=== PATIENT | female | born 1980 | race Caucasian/White ===

== ENCOUNTER 2017-04-11 09:17 | Inpatient (IN) | payer OTHER ==
[~2017-04-11] VITALS: Ht 157.5 cm; Wt 45.4 kg
[2017-04-11] MEDS ORDERED: CLONIDINE HCL 0.1 MG TABLET PO PRN (14:15)
[2017-04-11] MEDS ORDERED: IBUPROFEN 600 MG TABLET PO PRN (14:15)
[2017-04-11] MEDS ORDERED: diphenhydrAMINE 50 MG CAPSULE PO PRN (14:15)
[2017-04-11] MEDS ORDERED: ACETAMINOPHEN 325 MG TABLET PO PRN (14:15)
[2017-04-11] MEDS ORDERED: MAG HYDROX/AL HYDROX/SIMETH 30 ML LIQUID UDC PO PRN (14:15)
[2017-04-11] MEDS ORDERED: DICYCLOMINE HCL 20 MG TABLET PO PRN (14:15)
[2017-04-11] MEDS ORDERED: HYDROXYZINE PAMOATE 25 MG CAPSULE PO PRN (14:15)
[2017-04-11] MEDS ORDERED: NICOTINE POLACRILEX 4 MG GUM-PK OF TEN BC PRN (14:15)
[2017-04-11] MEDS ORDERED: MIRALAX 17 GM POWD.PACK PO PRN (14:15)
[2017-04-11] MEDS ORDERED: LORAZEPAM 1 MG TABLET PO PRN (14:15)
[2017-04-11] MEDS ORDERED: ONDANSETRON 4 MG/2 ML VIAL IM PRN (14:15)
[2017-04-11] MEDS ORDERED: ONDANSETRON ODT 4 MG TAB.RAPDIS SL PRN (14:15)
[2017-04-11] MEDS ORDERED: ALBUTEROL INH PRN (14:15)
[2017-04-11] MEDS ORDERED: LOPERAMIDE HCL 2 MG CAPSULE PO PRN ×2 (14:15)
--- NOTE | 2017-04-11 14:50 | NUR ---
Pre-Admit Assessment Skating Carhop encounters pt in intake room. Pt has an anxious affect with congruent mood. Pt is hyper-active, unable to keep arms or legs still. Pt is hyper-vigilant and labile. VS are stable. Pt is A/O x4 and able to make needs known.
--- NOTE | 2017-04-11 15:25 | NUR ---
Admission Note Pt arrives per ambulation and skin check is performed by GUERA Padilla, with reports of skin intact. Pt is a 36 year old female admitted for methamphetamine and heroin detoxification. Pt reports NKA, wishes to be a full code and has a regular diet. Pt reports a medically history of Asthma. Pt brought own medication, to include, Proventil inhaler, acyclovir, Advair, and also presented with 14mg Nicotine patches. Pt is under the influence of methamphetamines, having last smoked 0.1g at 1200, per report of pt. Pt is hyperactive, hyper-vigilant and is easily distracted, unable to sit still without making jerky movements with limbs. Pt is calm and cooperative, A/O x4 and able to make her needs known. Pt denies HI/SI or A/VH. Clear in thought and speech. Pt presents with a COWS of 7, but admits, still having it in the system, not feeling bad. Pt reports last having used at 1200 when she smoked 0.1g of meth. Last used Heroin at 0800, I shot a .4g, Pt states she has been sober for 8 months in 2003. Pt endorses having been in [facility] from 12/15 to 02/14. Pt also states she has been in at least 9 or 10 other treatment centers. Pt endorses having started using 22 years ago and has been using at current rate for last two years, minus time in treatment. Pt endorses IV use of Heroin, .25-1.5g/daily and smoking, .1g-.25g of methamphetamine/daily. Pt presents with VS WNL, pt with no s/s of distress and no complaints voiced by pt. Pt provided with admission educational material and introduced to the unit rules, activities and guidelines. Pt oriented to unit and room. All admission paperwork signed. Bed in low position, wheels locked, side rails up x2 with call light within reach. Will continue to monitor, support and encourage according to plan of care
[2017-04-11 15:44] LABS: *URINE HCG, QUAL NEGATIVE (NEGATIVE)
[2017-04-11 15:48] LABS: *AMPHETAMINE, URINE POSITIVE (NEGATIVE); *BARBITURATE, URINE NEGATIVE (NEGATIVE); *CANNABINOID, URINE NEGATIVE (NEGATIVE); *COCCAINE, URINE NEGATIVE (NEGATIVE); *OPIATE, URINE POSITIVE (NEGATIVE); *PHENCYCLIDINE SCREEN,URINE NEGATIVE (NEGATIVE)
[2017-04-11] MEDS ORDERED: FLUT1DIS28 INH (16:12)
[2017-04-11] MEDS ORDERED: ACYC400T PO (16:12)
[2017-04-11] MEDS ORDERED: NICO1PAT25 TP (16:12)
[2017-04-11] MEDS ORDERED: ALBU18HF2 INH (16:12)
[2017-04-11] MEDS: NICOTINE 21 MG/24HR PATCH TD SCH (17:00)
[2017-04-11 17:12] VITALS: BP 108/81
--- NOTE | 2017-04-11 19:00 | NUR ---
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 Pt was admitted for Meth and Heroin detoxification. Pt is a full code, with NKA, and eats a regular diet. PMH of Asthma and no history of seizures. Pts initial COWS of 7 mostly related to intoxication rather than withdrawal. Pt is hyperactive, hyper-vigilant and is easily distracted, unable to sit still without making jerky movements with limbs. Pt is calm and cooperative, A/O x4 and able to make her needs known. Pt makes no complaints and has no s/s of distress noted. Bed in low position, wheels locked, with side rails up x2. Call light within in reach. All safety measures in place according to hospital policy. No further comments, questions or concerns voiced by oncoming staff.
[2017-04-11 20:36] VITALS: BP 112/62
[2017-04-11] MEDS ORDERED: BUPRENORPHINE HCL 2 MG TAB.SUBL SL PRN (21:00)
--- NOTE | 2017-04-11 21:52 | NUR ---
Start of shift : Rec'd patient resting in room. Afebrile and vital signs are stable. Pt was admitted for Meth and Heroin detoxification. Patient's COWS score is 7 and mostly related to intoxication rather than withdrawal. Pt is hyperactive, hyper-vigilant and is easily distracted, unable to sit still. Patient moves from bed tyo chair and back. Pt is calm and cooperative. Patient denies having pain or discomfort. No signs of distress. Encouraged to increase fluid intake to facilitate detox. Subutrex taper will start in am. No other concerns at this time. Safety precaution initiated. Bed in the lowest position,wheels locked, side rails up x2 and call light within reach. Will continue to monitor closely.
--- NOTE | 2017-04-11 22:36 | NUR ---
PRN: Ativan. Noted patient is constantly squirming all over the room. Patient is moving from chair, to bed to floor and back. Patient is high risk for fall. Will increase frequency of rounding. Medicated with Ativan as ordered. Patient tolerated well. Will continue to monitor closely.
--- NOTE | 2017-04-11 23:19 | NUR ---
Ativan reassessment: Sleeping soundly in bed. No signs of distress. Safety precaution in progress. Bed is in the lowest position, side rails are up and call light within reach. Will continue to monitor closely.
[2017-04-12 00:36] VITALS: BP 111/76
[2017-04-12 04:31] VITALS: BP 107/50
--- NOTE | 2017-04-12 06:40 | NUR ---
EOS report: No interval changes during the night. No signs of pain or discomfort. No signs of distress. Afebrile and vital signs are stable. Patient rec'd Ativan for agitation with good effect. Patient slept a total of 8 hrs. Patient 's COWS score is 7. Patient will start Subutrex in am. No other concerns at this time. All needs were met. Safety and fall precaution maintained. Bed is in the lowest position, side rails are up and call light within reach. Will endorse to oncoming shift to follow up care.
[2017-04-12 07:27] LABS: ALANINE AMINOTRANSFERASE 20 U/L (14-59); ALKALINE PHOSPHATASE 100 U/L (50-136); ASPARTATE AMINOTRANSFERASE 16 U/L (15-37); BILIRUBIN,TOTAL 0.4 mg/dL (0.2-1.0); CARBON DIOXIDE 30 mmol/L (21-32); CHLORIDE 105 mmol/L (98-107); CREATININE 0.6 mg/dL (0.6-1.3); GLUCOSE 87 mg/dL (74-106); MAGNESIUM 1.9 mg/dL (1.8-2.4); POTASSIUM 3.8 mmol/L (3.5-5.1); TOTAL PROTEIN, SERUM 6.4 g/dL (6.4-8.2); UREA NITROGEN, BLOOD 13 mg/dL (7-18)
--- NOTE | 2017-04-12 07:30 | NUR ---
START OF SHIFT NOTE Pt is a 36 yr old female, A&Ox3. Pt was admitted on 04/11/17 for Opiate Dependence and is on 5 day Subutex taper as ordered. Pt received Ativan PRN for anxiety during the night. Medication was effective. Pt slept for 7 hrs during the night. Last COWS score was 7. Pt is currently in bed resting with respirations even and unlabored. No acute distress noted. Skin is intact, warm and dry to touch. Pt denies any n/v at this time. Pt is on fall precautions. Call light is within reach. Will continue to monitor.
[2017-04-12 07:32] LABS: BASOPHILS % (AUTO) 0.1 % (0.0-2.0); HEMATOCRIT 43.8 % (37-47); HEMOGLOBIN 14.5 G/DL (12.0-16.0); LYMPHOCYTES # (AUTO) 1.7 K/UL (0.8-4.8); LYMPHOCYTES % (AUTO) 29.7 % (20.5-51.5); MEAN CORPUSCULAR HEMOGLOBIN 27.9 UUG (27.0-31.0); MEAN CORPUSCULAR HGB CONC 33 g/dL (32.0-37.0); MEAN CORPUSCULAR VOLUME 84.3 FL (81.0-99.0); MONOCYTES # (AUTO) 0.4 K/UL (0.1-1.30); MONOCYTES % (AUTO) 6.9 % (0.0-11.0); NEUTROPHILS # (AUTO) 2.7 K/UL (1.8-8.9); NEUTROPHILS % (AUTO) 46.3 % (38.5-71.5); PLATELET COUNT (AUTO) 214 K/UL (150-450); RED BLOOD CELL COUNT(AUTO) 5.19 MIL/UL (4.2-5.4); WHITE BLOOD COUNT (AUTO) 5.8 K/UL (4.0-11.2)
[2017-04-12 07:33] LABS: ETHANOL < 3 MG/DL (0-0)
[2017-04-12 08:00] VITALS: BP 109/74
[2017-04-12] MEDS ORDERED: TUBERCULIN,PURIF.PROT.DERIV. 5 TU/0.1 ML TEST ID ONE (09:00)
[2017-04-12] MEDS: BUPRENORPHINE HCL 2 MG TAB.SUBL SL SCH ×4 (09:00→21:00)
[2017-04-12] MEDS: NICOTINE 21 MG/24HR PATCH TD SCH (09:42)
[2017-04-12] MEDS: METHOCARBAMOL 750 MG TABLET PO PRN (09:49)
--- NOTE | 2017-04-12 09:50 | NUR ---
SUBUTEX HELD/PRN GIVEN Subutex 4mg was held due to COWS score <8. Pt is in bed resting with respirations even and unlabored. Pt is c/o back pain 04/09. Motrin 600mg PRN and Robaxin 750mg PO PRN was given. Medication shae well. Encouraged increase fluid intake. Will continue to monitor.
[2017-04-12] MEDS: ADVAIR 250/50 INHALER INH SCH ×2 (10:37→21:05)
--- NOTE | 2017-04-12 11:19 | NUR ---
PRN RE-ASSESSMENT Motrin PRN and Robaxin PRN was effective. Pt pain level subsided to 5/10. Pt is resting in bed with respirations even and unlabored. Safety precaution observed. Will continue to monitor.
[2017-04-12 12:00] VITALS: BP 123/80
[2017-04-12 16:00] VITALS: BP 112/76
--- NOTE | 2017-04-12 17:25 | NUR ---
PRNS GIVEN Pt c/o anxiety, cold chills, and muscle aching. Pt's Hr was noted at 123bpm. Dr. Allen was made aware. Clonidine 0.1mg PO PRN and Vistaril 25mg PO PRN was given with Subutex 4mg as scheduled at 1700. Medication shae well. Will continue to monitor.
--- NOTE | 2017-04-12 18:56 | NUR ---
END OF SHIFT Pt is a 36 yr old female, A&Ox3. Pt was admitted on 04/11/17 for Opiate Dependence and is on 5 day Subutex taper as ordered. Pt has been observed with increase fatigued and has been in bed throughout the day. Pt refused to attend group sessions. Pt c/o anxiety and muscle pain. Motrin PRN and Robaxin was given at 0945. Medication was effective. Subutex 4mg was held at 0900 due to COWS score <8. Clonidine 0.1 PRN and Vistaril 25mg PRN was given at 1725 for increase anxiety and tachy. Medication was effective. Pt is currently in bed resting. Skin is intact, warm and dry to touch. No tremors seen or felt. Pt denies any n/v. Encouraged increase fluid intake. Last COWS score was 14 at 1600. Pt is on fall precautions. Call light is within reach.
--- NOTE | 2017-04-12 19:55 | NUR ---
Start of shift : Rec'd patient resting in room. Afebrile and vital signs are stable. Pt was admitted for Meth and Heroin detoxification. Patient's COWS score is 14. Patient does not want to participates in activities. Pt is anxious at times. Patient c/o generalized discomfort and chills. No signs of distress. Encouraged to increase fluid intake to facilitate detox. Subutrex taper protocol in progress. No other concerns at this time. Safety precaution initiated. Bed in the lowest position,wheels locked, side rails up x2 and call light within reach. Will continue to monitor closely.
[2017-04-12 20:15] VITALS: BP 109/74
[2017-04-13 00:05] VITALS: BP 119/79
[2017-04-13 04:28] VITALS: BP 110/69
--- NOTE | 2017-04-13 06:18 | NUR ---
EOS report: No interval changes during the night. No signs of pain or discomfort. No signs of distress. Afebrile and vital signs are stable. Patient slept a total of 9 hrs. Patient 's COWS score is 7. Patient started on Subutrex and tolerating well. Patient rec'd no prn medication during the shift. No other concerns at this time. All needs were met. Safety and fall precaution maintained. Bed is in the lowest position, side rails are up and call light within reach. Will endorse to oncoming shift to follow up care.
--- NOTE | 2017-04-13 07:30 | NUR ---
START OF SHIFT Pt is a 36 yr old female, A&Ox2. Pt was admitted on 04/11/17 for Opiate Dependence and is on 5 day Subutex taper as ordered. Pt slept for 9hrs during the night. No PRN's were given during the night. Last COWS score was 7. Pt is currently in bed resting with respirations even and unlabored. No acute distress noted. Skin is intact, warm and dry to touch. Pt denies any pain or discomfort at this time. Pt denies any n/v. Pt is on fall precautions. Call light is within reach. Will continue to monitor.
[2017-04-13 08:00] VITALS: BP 107/75
[2017-04-13] MEDS ORDERED: BUPRENORPHINE HCL 2 MG TAB.SUBL SL SCH (09:00)
[2017-04-13] MEDS: NICOTINE 21 MG/24HR PATCH TD SCH (09:00)
[2017-04-13] MEDS: ADVAIR 250/50 INHALER INH SCH ×2 (09:18→21:14)
--- NOTE | 2017-04-13 09:18 | NUR ---
NSG NOTES Pt was complaining of "not feeling good", stating she was having cold chills, abdominal cramping, and lower back pain. Subutex 4mg as scheduled was offered but pt refused. Pt states, "it does not work" and stating she continues to have withdrawal symptoms after taking Subutex. 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 Pt was encouraged and was explained of risks and benefits of medication. Further education is needed. COWS score was 9. VS are in stable condition. Dr. Allen was made aware. In addition, NicoDerm patch 21mg was not applied due to pt stated of wanting to smoke today. Pt was educated on smoking cessation. Will continue to monitor.
[2017-04-13] MEDS ORDERED: BACLOFEN 10 MG TABLET PO ONE (11:30)
[2017-04-13] MEDS ORDERED: KETOROLAC TROMETHAMINE 30 MG INJ IM PRN (11:30)
[2017-04-13] MEDS: BUPRENORPHINE HCL 2 MG TAB.SUBL SL SCH ×3 (11:58→21:14)
[2017-04-13 12:00] VITALS: BP 106/67
[2017-04-13] MEDS: BACLOFEN 20 MG TABLET PO SCH ×2 (14:32→21:14)
[2017-04-13 16:00] VITALS: BP 122/76
[2017-04-13] MEDS: ESCITALOPRAM OXALATE 10 MG TABLET PO SCH (16:42)
--- NOTE | 2017-04-13 18:55 | NUR ---
END OF SHIFT Pt is a 36 yr old female, A&Ox3. Pt was admitted on 04/11/17 for Opiate Dependence and is on 5 day Subutex taper as ordered. Pt has been observed with increase fatigued and has been in bed throughout the day. Pt refused to attend group sessions. Pt c/o anxiety and body aching but refused to take Subutex as scheduled at 0900. Dr. Allen was made aware and discussed with pt in regards to plan of care. Pt agreed to be cooperative with medication regimen and accept to take Subutex as ordered. Medication shae well. Pt is currently in bed resting. Skin is intact, warm and dry to touch. No tremors seen or felt. Encouraged increase fluid intake. Last COWS score was 8 at 1600. Pt is on fall precautions. Call light is within reach.
[2017-04-13 20:00] VITALS: BP 119/81
--- NOTE | 2017-04-13 20:00 | NUR ---
START OF SHIFT Received report from day shift nurse. Pt attended a group meeting and returned to her room after. She is a 36 yo female admitted to [facility] on 04/11 for opiate dependence with a h/o methamphetamine use. She is A&O x4 and ambulatory. NKA, full code status, and on a regular diet. She has a PMH of asthma and herpes. Pt denies SOB. On admission she admitted to using heroin 0.25-1.5 grams per day and methamphetamine 0.1gram-0.25 grams per day. 5 day Subutex taper started 04/13. Pt reports low back pain, hot and cold flashes, axiety. Taper due tonight.
[2017-04-13] MEDS: TRAZODONE 50 MG TABLET PO SCH (21:13)
[2017-04-13] MEDS: METHOCARBAMOL 750 MG TABLET PO PRN (21:14)
--- NOTE | 2017-04-13 21:15 | NUR ---
PRN Robaxin Pt c/o back pain 03/09. PRN Robaxin administered.
--- NOTE | 2017-04-13 22:15 | NUR ---
PRN Robaxin reassessment PRN Robaxin effective. Pt reports that back pain is relieved.
[2017-04-14] VITALS: BP 91/49
--- NOTE | 2017-04-14 | NUR ---
0000 COWS deferred COWS ordered Q4HWA. Pt is lying in bed resting with eyes closed. Vital signs obtained. Safety measures in place.
--- NOTE | 2017-04-14 04:00 | NUR ---
0400 Vitals refused/COWS deferred Pt refused to be woken for 0400 vitals. She is lying in bed resting with eyes closed. Respirations even and unlabored. COWS ordered Q4HWA. Safety measures in place.
--- NOTE | 2017-04-14 07:24 | NUR ---
END OF SHIFT Report provided to day shift nurse. Pt is lying in bed resting. She is a 36 yo female admitted to [facility] on 04/11 for opiate dependence with a h/o methamphetamine use. She is A&O x4 and ambulatory. NKA, full code status, and on a regular diet. She has a PMH of asthma and herpes. On admission she admitted to using heroin 0.25-1.5 grams per day and methamphetamine 0.1gram-0.25 grams per day. 5 day Subutex taper started 04/13. Pt was cooperative with treatment. PRN Robaxin administered. Last COWS was 5 before night meds. She drank 740mL and slept for 8 hours. Taper due tonight.
[2017-04-14 08:06] LABS: HEPATITIS B SURFACE AG Negative (Negative)
[2017-04-14 08:46] VITALS: BP 111/76
[2017-04-14] MEDS: NICOTINE 21 MG/24HR PATCH TD SCH (09:00)
[2017-04-14] MEDS ORDERED: BUPRENORPHINE HCL 2 MG TAB.SUBL SL SCH (09:00)
[2017-04-14] MEDS: BACLOFEN 20 MG TABLET PO SCH ×3 (09:12→21:06)
[2017-04-14] MEDS: ESCITALOPRAM OXALATE 10 MG TABLET PO SCH (09:12)
[2017-04-14] MEDS: ADVAIR 250/50 INHALER INH SCH ×2 (10:38→21:07)
[2017-04-14] MEDS ORDERED: KETOROLAC TROMETHAMINE 30 MG INJ IM PRN (12:00)
[2017-04-14] MEDS ORDERED: HYDROXYZINE PAMOATE 25 MG CAPSULE PO PRN (12:00)
[2017-04-14 12:49] VITALS: BP 110/70
--- NOTE | 2017-04-14 14:11 | NUR ---
Therapist prompted client to attend daily group sessions, and client stated that she would not be attending at this time.
[2017-04-14] MEDS: GABAPENTIN 300 MG CAPSULE PO SCH ×2 (15:09→21:06)
[2017-04-14] MEDS: BUPRENORPHINE HCL 2 MG TAB.SUBL SL SCH ×2 (15:10→21:06)
[2017-04-14 16:50] VITALS: BP 108/66
--- NOTE | 2017-04-14 18:58 | NUR ---
End of Shift Laboratory Sample Carrier provided report on 36 year old female admitted on 04/11/17 for Methamphetamine and heroin detoxification. Pt has NKA, is a full code and eats a regular diet. Pt reports PMH of asthma, with no seizure history noted. Pt currently on a 5 day Subutex taper, tolerating well. Pt has been calm and cooperative, pleasant and social. Makes needs known and is A/O x4. Pt complains of back pain 02/07, but shows no s/s of pain, remains bright, energetic and with a full range of emotions. Bed in low position, with wheels locked, side rails up x2 and call light within reach.
[2017-04-14 20:00] VITALS: BP 102/70
--- NOTE | 2017-04-14 20:05 | NUR ---
START OF SHIFT Received report from day shift nurse. Pt attended a group meeting and returned to her room after. She is a 36 yo female admitted to [facility] on 04/11 for opiate dependence with a h/o methamphetamine use. She is A&O x4 and ambulatory. NKA, full code status, and on a regular diet. She has a PMH of asthma and herpes. Upon admission she reported using heroin 0.25-1.5 grams per day and methamphetamine 0.1gram-0.25 grams per day. Pt reports feeling anxious and generalized body aches. Subutex taper is working well to manage withdrawal symptoms. Fall precautions ordered. Bed is down with call light in reach.
[2017-04-14] MEDS: TRAZODONE 50 MG TABLET PO SCH (21:06)
[2017-04-15] VITALS: BP 104/67
--- NOTE | 2017-04-15 | NUR ---
0000 COWS deferred COWS ordered Q4HWA. Pt is lying in bed resting with eyes closed. Vital signs obtained. Safety measures in place.
--- NOTE | 2017-04-15 07:19 | NUR ---
END OF SHIFT Report provided to day shift nurse. Pt is lying in bed resting. She is a 36 yo female admitted to [facility] on 04/11 for opiate dependence with a h/o methamphetamine use. She is A&O x4 and ambulatory. NKA, full code status, and on a regular diet. She has a PMH of asthma and herpes. Upon admission she reported using heroin 0.25-1.5 grams per day and methamphetamine 0.1gram-0.25 grams per day. Pt slept throughout the shift. No PRN medications administered. Last COWS 3. She drank 396mL and slept for 11 hours. Fall precautions ordered. Bed is down with call light in reach.
--- NOTE | 2017-04-15 07:23 | NUR ---
Start of Shift Sandwich Counter Attendant received report on 36 year old female admitted on 04/11/17 for Methamphetamine and heroin detoxification. Pt has NKA, is a full code and eats a regular diet. Pt reports PMH of asthma, with no seizure history noted. Pt currently on a 5 day Subutex taper, tolerating well. Pt encountered in pt room, resting with eyes closed. Respirations even and unlabored. Rise and fall of chest noted. Bed in low position, with wheels locked, side rails up x2 and call light within reach. Will continue to monitor, support and encourage according to plan of care.
[2017-04-15 08:36] VITALS: BP 116/76
[2017-04-15] MEDS: NICOTINE 21 MG/24HR PATCH TD SCH (09:00)
[2017-04-15] MEDS: ESCITALOPRAM OXALATE 10 MG TABLET PO SCH (09:09)
[2017-04-15] MEDS: GABAPENTIN 300 MG CAPSULE PO SCH ×3 (09:09→21:42)
[2017-04-15] MEDS: BUPRENORPHINE HCL 2 MG TAB.SUBL SL SCH ×3 (09:09→21:42)
[2017-04-15] MEDS: BACLOFEN 20 MG TABLET PO SCH ×3 (09:09→21:42)
[2017-04-15] MEDS: ADVAIR 250/50 INHALER INH SCH ×2 (11:53→21:52)
[2017-04-15] MEDS: LIDOCAINE 5% PATCH TD SCH (12:18)
[2017-04-15 12:42] VITALS: BP 97/66
[2017-04-15 17:14] VITALS: BP 100/67
--- NOTE | 2017-04-15 18:53 | NUR ---
End of Shift President And Chief Commercial Officer provided report on 36 year old female admitted on 04/11/17 for Methamphetamine and heroin detoxification, with no further comments, questions or concerns voiced. Pt has NKA, is a full code and eats a regular diet. Pt reports PMH of asthma, with no seizure history noted. Pt currently on a 5 day Subutex taper, tolerating well. Pt has been calm, cooperative with a bright affect and congruent mood. Makes her needs known and is pleasant. No PRN administered today. Pt did make complaints of pain, but this was alleviated by the administration of Lidocaine. Pt is tolerating detoxification well with minor withdrawal symptoms noted. Last COWS of 4 at 1715. Bed in low position, with wheels locked, side rails up x2 and call light within reach.
[2017-04-15 20:00] VITALS: BP 101/69
--- NOTE | 2017-04-15 20:00 | NUR ---
Start of Shift Note: Report received from day shift nurse. Pt is a 36 y/o female admitted on 04/11/17 for medically-supervised withdrawal from opiates and methamphetamine. Pt reports using 0.25-1.5gm IV heroin and 0.1-0.25gm methamphetamine salts daily for 2 years. Pt is on a 5-day Subutex taper. Pt received with last COWS=4, and no PRN's were given during day shift. Pt is a full code, reports NKDA/NKFA, and is on a regular diet. PMHx: asthma, HSV. Pt received in room and reports anxiety, chills, fatigue and diaphoresis. Bed is in low position and locked, side rails up x2, call light is within reach. Will continue to monitor.
[2017-04-15] MEDS: TRAZODONE 50 MG TABLET PO SCH (21:42)
[2017-04-16] VITALS: BP 94/65
--- NOTE | 2017-04-16 | NUR ---
COWS Deferred: 00:00 COWS is deferred for sleep. V/S stable. All safety precautions are in place. Will continue to monitor. Addendum: 04/16/17 at 0224 by CHRISTIAN LEON RN Amended: Links added.
--- NOTE | 2017-04-16 04:00 | NUR ---
V/S Refused, COWS Deferred: Patient refuses 04:00 V/S. COWS is deferred for sleep. All safety precautions are in place. Will continue to monitor. Addendum: 04/16/17 at 0415 by CHRISTIAN LEON RN Amended: Links added.
--- NOTE | 2017-04-16 06:56 | NUR ---
End of Shift Note: Pt is a 36 y/o female admitted to [facility] on 04/11/17 for medically-supervised withdrawal from opiates and methamphetamine. Pt reported a PMHx of asthma and HSV. Pt is a full code. Pt reports NKDA/NKFA. Pt is on a regular diet. Pt reported using 0.25-1.5gm IV heroin and 0.1-0.25gm methamphetamine salts daily for 2 years. Pt continues on a 5-day Subutex taper. Scheduled medication regime managed s/s of withdrawal this shift, and no PRN medications were necessary. Last COWS=9 at 20:00, before administration of taper medications. V/S stable throughout shift. Total fluid intake this shift: 520 ml; output: urine x 1 and BM x 0. Pt is currently in bed and slept 10 hours this shift. All needs have been attended and met. Pt endorsed to day shift nurse.
--- NOTE | 2017-04-16 07:00 | NUR ---
Start of Shift Notes: Received patient in her room. Alert and oriented x 4. No changes in LOC noted. Respirations even and unlabored. No SOB noted. Appears drowsy upon waking up. Skin warm and dry to touch. Abdomen soft and non-distended with (+) BS in all 4 quadrants. No complains of N/V/D or constipation noted. Denies any abdominal cramps at this time. Voids independently. Denies dysuria. Ambulatory ad ilb with steady gait. Patient is a 36 year old female admitted for methamphetamine and opiate dependence who was placed on a 5-day Subutex taper as ordered. No adverse reactions noted. Patient is tolerating taper well. Has past medical hx of asthma, herpes, and chronic back pain. NKA.; FULL CODE. Regular diet. On fall and seizure precautions. Educated patient on her current plan of care for the day and her medication regimen. All needs met and attended. Will continue to monitor closely.
[2017-04-16 08:00] VITALS: BP 100/77
[2017-04-16] MEDS: GABAPENTIN 300 MG CAPSULE PO SCH ×3 (08:46→21:34)
[2017-04-16] MEDS: ESCITALOPRAM OXALATE 10 MG TABLET PO SCH (08:46)
[2017-04-16] MEDS: BACLOFEN 20 MG TABLET PO SCH ×3 (08:47→21:34)
[2017-04-16] MEDS: LIDOCAINE 5% PATCH TD SCH (08:47)
[2017-04-16] MEDS: ADVAIR 250/50 INHALER INH SCH ×2 (08:48→22:23)
[2017-04-16] MEDS: NICOTINE 21 MG/24HR PATCH TD SCH (08:50)
--- NOTE | 2017-04-16 08:50 | NUR ---
Nicotine patch not administered: Patient refused Nicotine patch at this time. Per patient, she will continue to smoke cigarettes today. Smoking cessation education provided. Educated patient on the risk and benefits. Patient verbalized understanding but plans on to continue to smoke.
[2017-04-16] MEDS ORDERED: BUPRENORPHINE HCL 2 MG TAB.SUBL SL SCH (09:00)
[2017-04-16 12:00] VITALS: BP 110/71
--- NOTE | 2017-04-16 13:45 | NUR ---
RECOVERY INSIGHT/SUPPORT AND EDUCATION: This video game script writer met with patient to discuss her status and feelings regarding moving forward in recovery. Patient admitted that she feels "hopeless" and unwilling to attend further treatment programs. Patient stated that she has learned all about recovery in the past but does not actively attend 12-step meetings anymore. She stated that she used to have a sponsor who only had 8 months sober and did not attempt to work the 12-step process with her. The patient stated "I like feeling out of control". This video game script writer asked the patient if she feels hopeless and she was tearful admitting hopelessness and extreme grief related to the recent of her father. Patient stated that she did EMDR therapy to process her grief in recent treatment episodes, however is still tearful when discussing her father. Patient stated she lives alone. This video game script writer shared that my personal sobriety started at her same age and that I now have almost 30 years clean and sober. The patient stated that she believes it is a fatal illness but "not for me". This video game script writer shared many stories about patients who have overdosed and that it is indeed fatal; but, the emphasis was placed on there being a viable solution to the problem. The patient was encouraged to re-consider ongoing treatment, both inpatient and/or outpatient and strongly emphasized the importance of daily 12-step meetings, a sponsor and that by working the 12-step process she can indeed experience bing again in her life. Patient stated she is willing to talk with her housing case manager to learn what her treatment options are and re-evaluate her decision. This video game script writer expressed that the [facility] really cares about her and believes she can succeed. I encouraged the patient to use the staff to process her thoughts and feelings as well as the group therapy.
[2017-04-16 16:00] VITALS: BP 101/75
[2017-04-16 18:08] LABS: *AMPHETAMINE, URINE NEGATIVE (NEGATIVE); *BARBITURATE, URINE NEGATIVE (NEGATIVE); *CANNABINOID, URINE NEGATIVE (NEGATIVE); *COCCAINE, URINE NEGATIVE (NEGATIVE); *OPIATE, URINE POSITIVE (NEGATIVE); *PHENCYCLIDINE SCREEN,URINE NEGATIVE (NEGATIVE)
--- NOTE | 2017-04-16 18:55 | NUR ---
End of Shift Notes: Patient completed her 5-day Subutex taper today. No adverse reactions noted. Patient tolerated taper well. Prior to admission, patient was using 0.1g to 0.25 grams of methamphetamine and 0.25g to 1.5grams of Heroin IV daily. VS monitored closely q 4 hours. No significant abnormalities noted. Withdrawal symptoms were closely monitored. Initial COWS 5, patient presented with anxiety, muscle aches and pains, and chills. Last COWS 2. Refused Nicotine patch in AM. Smoking cessation education provided. Compliant with care and treatment. Per patient, Subutex has been helping her with her withdrawal symptoms. Actively participates in group and therapy sessions. Patient will be discharging tomorrow. UDS in and resulted. On fall and seizure precautions. All needs met and attended. Will continue to monitor closely.
[2017-04-16 20:00] VITALS: BP 110/72
--- NOTE | 2017-04-16 20:00 | NUR ---
1999 Patient received awake, alert and just returning to her room # [id number] from [employer] group in recreation room. Gait is brisk, steady. Patient responds to nurse's greeting and introduction with a smile and " Hi, how are you?" Patient is oriented to person, place, day, date, time and her personal situation. Patient's color is pink and her skin is clean, warm, dry and intact. Patient denies any pain or other discomforts at this time, and she voices no requests for anything. Patient states that she continues to eat her regular diet trays and take various fluids ad mandeep with no gastric issues. Patient states further that she continues to attend all [employer] groups regularly and do all that is asked of her by [facility] staff, as related to her therapeutic plan. Vital signs are: 98.2-102-18 110/72, O2 Sat 99%, COWS 2 . Patient was admitted on 04/11/17 for Heroin and Methamphetamine withdrawal and she has completed her 5-Day Subutex medication taper at this time. Patient to be discharged to area rehab facility tomorrow. 04/16/17 UDS results on patient's chart. Patient is friendly, cooperative and verbally appropriate when interacting with nurse and her overall mood/affect is mildly euphoric. Bed is locked and in lowest position, bed rails are up X 1 and call light within patient's easy reach.
[2017-04-16] MEDS ORDERED: DICY20TA28 PO (21:32)
[2017-04-16] MEDS ORDERED: ESCI10TA PO (21:32)
[2017-04-16] MEDS ORDERED: IBUP-1955 PO (21:32)
[2017-04-16] MEDS ORDERED: BACL20TA PO (21:32)
[2017-04-16] MEDS ORDERED: GABA-534 PO (21:32)
[2017-04-16] MEDS ORDERED: TRAZ-144 PO (21:32)
[2017-04-16] MEDS ORDERED: LIDO30AD10 TD (21:32)
[2017-04-16] MEDS ORDERED: HYDR-3895 PO (21:32)
[2017-04-16] MEDS: TRAZODONE 50 MG TABLET PO SCH (21:34)
--- NOTE | 2017-04-17 | NUR ---
Patient refused to be awakened for V/S to be done at this time.
--- NOTE | 2017-04-17 04:00 | NUR ---
Patient refused to be awakened for V/S to be done at this time.
--- NOTE | 2017-04-17 06:30 | NUR ---
0630 Patient slept a total of 8 hours and she had 1 void and no stools. Total intake was 541 ml p.o. Patient had no Prn medications this shift. V/SS afebrile, last COWS was 2 at 1999. Patient is presently sleeping comfortably in stable condition, with eyes closed and respirations quiet, even, unlabored at 12.
--- NOTE | 2017-04-17 07:15 | NUR ---
Start of Shift Notes: Received patient in her room. Alert and oriented x 4. No changes in LOC noted. Respirations even and unlabored. No SOB noted. Appears drowsy upon waking up. Skin warm and dry to touch. Abdomen soft and non-distended with (+) BS in all 4 quadrants. No complains of N/V/D or constipation noted. Denies any abdominal cramps at this time. Voids independently. Denies dysuria. Ambulatory ad ilb with steady gait. Patient is a 36 year old female admitted for methamphetamine and opiate dependence who was placed on a 5-day Subutex taper as ordered. No adverse reactions noted. Patient is tolerating taper well. Has past medical hx of asthma, herpes, and chronic back pain. NKA.; FULL CODE. Regular diet. On fall and seizure precautions. Patient will be discharging today. Educated patient on her current plan of care for the day and her discharge process. All needs met and attended. Will continue to monitor closely.
[2017-04-17 08:00] VITALS: BP 115/75
[2017-04-17] MEDS: ESCITALOPRAM OXALATE 10 MG TABLET PO SCH (08:22)
[2017-04-17] MEDS: GABAPENTIN 300 MG CAPSULE PO SCH ×3 (08:22→21:47)
[2017-04-17] MEDS: LIDOCAINE 5% PATCH TD SCH (08:22)
[2017-04-17] MEDS: BACLOFEN 20 MG TABLET PO SCH ×3 (08:22→21:47)
[2017-04-17] MEDS: ADVAIR 250/50 INHALER INH SCH ×2 (08:28→21:49)
[2017-04-17] MEDS: NICOTINE 21 MG/24HR PATCH TD SCH (09:00)
[2017-04-17 12:00] VITALS: BP 116/77
--- NOTE | 2017-04-17 13:02 | NUR ---
pt at this time is in stable condition, but has not safe discharge location at this time. case therapist are working with client to find a successful safe discharge location
[2017-04-17 16:00] VITALS: BP 98/57
--- NOTE | 2017-04-17 18:48 | NUR ---
End of Shift Notes: Patient on close monitoring during the shift after completing her taper. Discharge location still pending. No adverse reactions noted. Patient tolerated taper well. Prior to admission, patient was using 0.1g to 0.25 grams of methamphetamine and 0.25g to 1.5grams of Heroin IV daily. VS monitored closely q 4 hours. No significant abnormalities noted. Withdrawal symptoms were closely monitored. Initial COWS 1 patient presented with anxiety, muscle aches and pains . Last COWS 1. Refused Nicotine patch in AM. Smoking cessation education provided. Compliant with care and treatment. Per patient, Bacilio has been helping her with her withdrawal symptoms. Actively participates in group and therapy sessions. Patient will be discharging tomorrow. UDS in and resulted. On fall and seizure precautions. All needs met and attended. Will continue to monitor closely.
--- NOTE | 2017-04-17 19:00 | NUR ---
Start of Shift Patient Received. Patient is in bed sleeping. Breathing even and non labored. No signs of pain or discomfort noted. Patient is a 36 year old female admitted on 04/11/17 for Opiate Dependence under the care of Dr. Allen. Patient continues on 5 day Subutex taper. Patient verbalizes no known allergies, wishes to be full code, following a regular diet, placed on fall precautions, skin noted intact. Past medical history noted as Asthma and history of STD. No seizure history noted. Last noted COWS noted to be 1. All needs attended to promptly. Will continue plan of care as ordered.
[2017-04-17 20:40] VITALS: BP 109/58
[2017-04-17] MEDS: TRAZODONE 50 MG TABLET PO SCH (21:47)
[2017-04-18 00:53] VITALS: BP 95/58
[2017-04-18 04:30] VITALS: BP 101/63
--- NOTE | 2017-04-18 07:20 | NUR ---
End of Shift Patient is in bed sleeping. Breathing even and non labored. No signs of pain or discomfort noted. Patient is a 36 year old female admitted on 04/11/17 for Opiate Dependence and has completed a 5 day Subutex taper. No known allergies, full code, regular diet, placed on fall precautions, skin noted intact. Discharge is currently pending due to locating safe discharge location. Last noted COWS noted to be 1. All needs attended to promptly. Will endorse to continue plan of care as ordered.
--- NOTE | 2017-04-18 07:21 | NUR ---
Start of Shift Notes: Received patient in her room. Alert and oriented x 4. No changes in LOC noted. Respirations even and unlabored. No SOB noted. Appears drowsy upon waking up. Skin warm and dry to touch. Abdomen soft and non-distended with (+) BS in all 4 quadrants. No complains of N/V/D or constipation noted. Denies any abdominal cramps at this time. Voids independently. Denies dysuria. Ambulatory ad ilb with steady gait. Patient is a 36 year old female admitted for methamphetamine and opiate dependence who was placed on a 5-day Subutex taper as ordered. No adverse reactions noted.Completed taper and has pending discharge location. Has past medical hx of asthma, herpes, and chronic back pain. NKA.; FULL CODE. Regular diet. On fall and seizure precautions. Patient will be discharging today. Educated patient on her current plan of care and her medication regimen. Encouraged oral fluid intake and encouraged group participation to learn new skills to prevent relapse. All needs met and attended. Will continue to monitor closely.
[2017-04-18 08:00] VITALS: BP 109/74
[2017-04-18] MEDS: GABAPENTIN 300 MG CAPSULE PO SCH ×3 (08:35→21:26)
[2017-04-18] MEDS: BACLOFEN 20 MG TABLET PO SCH ×3 (08:35→21:27)
[2017-04-18] MEDS: LIDOCAINE 5% PATCH TD SCH (08:35)
[2017-04-18] MEDS: ESCITALOPRAM OXALATE 10 MG TABLET PO SCH (08:35)
[2017-04-18] MEDS: NICOTINE 21 MG/24HR PATCH TD SCH (08:50)
[2017-04-18] MEDS: ADVAIR 250/50 INH SCH ×2 (09:30→21:30)
[2017-04-18 12:00] VITALS: BP 105/66
[2017-04-18 15:34] LABS: *AMPHETAMINE, URINE NEGATIVE (NEGATIVE); *BARBITURATE, URINE NEGATIVE (NEGATIVE); *CANNABINOID, URINE NEGATIVE (NEGATIVE); *COCCAINE, URINE NEGATIVE (NEGATIVE); *OPIATE, URINE POSITIVE (NEGATIVE); *PHENCYCLIDINE SCREEN,URINE NEGATIVE (NEGATIVE)
--- NOTE | 2017-04-18 15:46 | NUR ---
UDS Result: Patient's UDS result tested (+) for opiates. Patient's last dose of Subutex 2 mg SL was on 04/16/2017. Patient remains in stable condition. No changes in behavior noted. Appears motivated to sobriety. NNO made per MD.
[2017-04-18 16:00] VITALS: BP 130/72
--- NOTE | 2017-04-18 18:45 | NUR ---
End of Shift Notes: Patient on close monitoring during the shift after completing her taper. Patient will be discharging tomorrow. Patient tolerated taper well. Prior to admission, patient was using 0.1g to 0.25 grams of methamphetamine and 0.25g to 1.5grams of Heroin IV daily. VS monitored closely q 4 hours. No significant abnormalities noted. Withdrawal symptoms were closely monitored. Initial COWS 1 patient presented with muscle aches and pains. Last COWS 1. Refused Nicotine patch in AM. Smoking cessation education provided. Compliant with care and treatment. Per patient, Bacilio has been helped her with her withdrawal symptoms. Actively participates in group and therapy sessions. Patient will be discharging tomorrow. UDS in and resulted. On fall and seizure precautions. All needs met and attended. Will continue to monitor closely.
--- NOTE | 2017-04-18 19:00 | NUR ---
Start of Shift Patient Received. Patient is in activities room participating in group meeting. Patient is a 36 year old female admitted on 04/11/17 for Opiate Dependence under the care of Dr. Allen. Patient continues on 5 day Subutex taper. No known allergies, wishes to be full code, following a regular diet, placed on fall precautions, skin noted intact. Per endorsement, Patient is set for discharge tomorrow 04/18/17. Patients Discharge urine drug screen noted to be Positive (+) for Opiates with last dose of Subutex noted to be 04/16/17. Patient appears motivated to sober. MD made aware with no new orders. Last noted COWS noted to be 1. All needs attended to promptly. Will continue plan of care as ordered.
[2017-04-18 20:30] VITALS: BP 130/80
[2017-04-18] MEDS: TRAZODONE 50 MG TABLET PO SCH (21:27)
[2017-04-19 00:18] VITALS: BP 108/71
[2017-04-19 04:00] VITALS: BP 96/73
--- NOTE | 2017-04-19 06:58 | NUR ---
End of Shift Patient is in bed sleeping but easily to verbal stimuli. Breathing even and non labored. No signs of pain or discomfort noted. Patient is a 36 year old female admitted on 04/11/17 for Opiate Dependence and has completed a 5 day Subutex taper. No known allergies, full code, regular diet, placed on fall precautions, skin noted intact. Patient is set for discharge today 04/19/17. No PRN Medication Administered. Last noted COWS noted to be 1. All needs attended to promptly. Will endorse to continue plan of care as ordered.
--- NOTE | 2017-04-19 07:49 | NUR ---
START OF SHIFT NOTE Received report from night nurse, 36 year old female admitted to [facility] for Opiate dependence with a h/o methamphetamine use. NKA, full code status, and on a regular diet. Pt completed her 5 Days Subutex taper tolerated well. Per endorsement pt were not given any PRN last COWS-1, slept for 7 hours and set for discharge today. Received pt asleep in bed responsive to verbal and tactile stimuli. Breathing normal no SOB noted. Skin intact warm and dry to touch. All safety measures in place, Call light within reach. Will cont to monitor.
[2017-04-19 08:00] VITALS: BP 116/83
[2017-04-19] MEDS: BACLOFEN 20 MG TABLET PO SCH ×2 (08:19→14:29)
[2017-04-19] MEDS: GABAPENTIN 300 MG CAPSULE PO SCH ×2 (08:19→14:29)
[2017-04-19] MEDS: NICOTINE 21 MG/24HR PATCH TD SCH (08:20)
[2017-04-19] MEDS: LIDOCAINE 5% PATCH TD SCH (08:20)
[2017-04-19] MEDS: ESCITALOPRAM OXALATE 10 MG TABLET PO SCH (08:20)
[2017-04-19] MEDS: ADVAIR 250/50 INH SCH (08:38)
[2017-04-19 12:00] VITALS: BP 102/61
--- NOTE | 2017-04-19 15:55 | NUR ---
DISCHARGE NOTE Pt is alert and oriented x4. Pt is in stable condition. Pt was admitted for Opioid dependence. Pt's last COWS score noted 1. Vital signs WNL. Skin intact warm and dry to touch. All discharge paper work done dated and signed. Pt educated about discharge instructions. Pt verbalized understanding. Pt was discharged from [facility] at 1555 for [facility]. Pt left the building with all of her belongings and prescriptions, has been contracted and notified of pt's discharge.
[2017-04-19 16:00] VITALS: BP 127/71
== END 2017-04-19 17:55 | disposition other institution (70) | DRG 895 ==
LOC: SRC 13:45
PROVIDERS: ADMIT Internal Medicine; ATTEND Internal Medicine
PROC: HZ2ZZZZ Detoxification Services for Substance Abuse Treatment (ICD-10-PCS; principal; 2017-04-11)
PROC: HZ31ZZZ Individual Counseling for Substance Abuse Treatment, Behavioral (ICD-10-PCS; 2017-04-14)
PROC: HZ41ZZZ Group Counseling for Substance Abuse Treatment, Behavioral (ICD-10-PCS; 2017-04-15)
DX: F11.23 Opioid dependence with withdrawal (principal); F15.20 Other stimulant dependence, uncomplicated; F32.9 Major depressive disorder, single episode, unspecified; F10.21 Alcohol dependence, in remission; F17.210 Nicotine dependence, cigarettes, uncomplicated; Z80.9 Family history of malignant neoplasm, unspecified; Z81.1 Family history of alcohol abuse and dependence; J45.20 Mild intermittent asthma, uncomplicated; G47.00 Insomnia, unspecified; Y90.9 Presence of alcohol in blood, level not specified
CPT/HCPCS: 36415; 70030-TC; 80307; 80324; 80361; 83735; 84703; 85025; 86580; 86592; 86705; 86803; 87340; 87806; 93005; A4663; G0480